=== PATIENT | female | born 1970 ===

== ENCOUNTER 2017-05-13 19:08 | Emergency (ER) | payer BC ==
[2017-05-13 19:15] VITALS: BP 121/75; PULSE 71; RESP 16; TEMP 97.7; O2SAT 98
[2017-05-13] MEDS ORDERED: Lactated Ringer's 1,000 ML IV STA (19:19)
[2017-05-13 19:59] LABS: BASO # 0.1 K/uL (0.0-0.2); BASO % 0.8 % (0.0-2.0); EOS % 0.5 % (0.0-4.0); HEMOGLOBIN 11.2 g/dL (12.0-16.0); LYMPH # 2.2 K/uL (1.0-4.3); LYMPH % 28.7 % (20.0-40.0); MEAN CELL VOLUME 80.1 fl (81.0-99.0); MEAN CORPUSCULAR HEMOGLOBIN 26.3 pg (27.0-31.0); MEAN CORPUSCULAR HGB CONC 32.9 g/dL (33.0-37.0); MEAN PLATELET VOLUME 8.2 fl (7.2-11.7); MONO # 0.4 K/uL (0.0-0.8); MONO % 5.2 % (0.0-10.0); NEUT % 64.8 % (50.0-75.0); NRBC % 0.1 % (0.0-0.0); RBC 4.24 Mil/uL (3.80-5.20); RED CELL DISTRIBUTION WIDTH 16.8 % (11.5-14.5); WHITE BLOOD COUNT 7.7 K/uL (4.8-10.8)
[2017-05-13 20:09] LABS: ALB/GLOB RATIO 1.4 (1.0-2.1); ALBUMIN 4.1 g/dL (3.5-5.0); ALT/SGPT 33 U/L (9-52); AST/SGOT 30 U/L (14-36); BLOOD UREA NITROGEN 7 mg/dl (7-17); CALCIUM 9.5 mg/dL (8.4-10.2); GFR AFRICAN-AMERICAN > 60; GFR NON-AFRICAN AMERICAN > 60
--- NOTE | 2017-05-13 20:17 | ED PDOC ---
HPI: Female Pain Time Seen by Provider: 05/13/17 19:19 Chief Complaint (Nursing): Abdominal Pain Chief Complaint (Provider): Pelvic Pain (Resolved) History Per: Patient History/Exam Limitations: no limitations Onset/Duration Of Symptoms: Days (x1) Current Symptoms Are (Timing): Gone Now Associated Symptoms: denies: Urinary Symptoms Additional Complaint(s): 46 year old female presents to ED with complaints of left-sided pelvic pain that has since resolved and is at 5 weeks . Patient presents to the ED requesting evaluation as she had an ectopic that led to an right-sided oopherectomy in the past. (-) vaginal bleeding/discharge, dysuria, hematuria, or frequency. Patient denies having a [employer], but confirms having 2 outpatient US that both demonstrated an IUP with no heart (most recent 3 days ago). Patient also notes BETA HCG level increased from 4468 to 64869 as of 8 days ago. Notes having an appointment with [employer] Dr. Wooten Tuesday. PCP: Deyanira Abnormal Vaginal Bleeding: No : 3 Para: 1 Past Medical History Reviewed: Historical Data, Nursing Documentation, Vital Signs Vital Signs: Last Vital Signs Temp 97.7 F 05/13/17 19:11 Pulse 71 05/13/17 19:11 Resp 16 05/13/17 19:11 BP 121/75 05/13/17 19:11 Pulse Ox 98 05/13/17 19:11 - Medical History PMH: Anemia - Surgical History Surgical History: Appendectomy Denies: No Surg Hx Other surgeries: ectopic with oopherectomy - Family History Family History: States: No Known Family Hx - Living Arrangements Living Arrangements: With Family - Social History Current smoker - smoking cessation education provided: No Ex-Smoker (has not smoked in the last 12 months): No Alcohol: None Drugs: Denies - Allergies Allergies/Adverse Reactions: Allergies Allergy/AdvReac Type Severity Reaction Status Date / Time No Known Allergies Allergy Verified 05/13/17 19:11 Review of Systems ROS Statement: Except As Marked, All Systems Reviewed And Found Negative Genitourinary Female: Positive for: Pelvic Pain (resolved). Negative for: Dysuria, Frequency, Hematuria, Vaginal Discharge, Vaginal Bleeding Physical Exam - Reviewed Nursing Documentation Reviewed: Yes Vital Signs Reviewed: Yes - Physical Exam Appears: Positive for: Well, No Acute Distress Head Exam: Positive for: ATRAUMATIC, NORMOCEPHALIC Skin: Positive for: Warm, Dry Eye Exam: Positive for: EOMI, PERRL ENT: Negative for: Pharyngeal Erythema, Tonsillar Exudate Neck: Positive for: Painless ROM, Supple Cardiovascular/Chest: Positive for: Regular Rate, Rhythm. Negative for: Murmur Respiratory: Positive for: Normal Breath Sounds. Negative for: Respiratory Distress Gastrointestinal/Abdominal: Positive for: Soft. Negative for: Tenderness, Mass , Distended, Guarding Back: Positive for: Normal Inspection. Negative for: Decreased ROM Extremity: Positive for: Normal ROM. Negative for: Deformity Lymphatic: Negative for: Adenopathy Neurologic/Psych: Positive for: Alert. Negative for: Motor/Sensory Deficits - Laboratory Results Result Diagrams: 05/13/17 19:55 05/13/17 19:55 - ECG O2 Sat by Pulse Oximetry: 98 (RA) Pulse Ox Interpretation: Normal Medical Decision Making Medical Decision Makin Initial impression: pelvic pain and possible demise DDx including but not limited to: UTI, round ligament pain, threatened miscarriage, dehydration Initial plan: * BETA HCG QUANT * Labs * UPreg * UDip * Lactated Ringers IV * US OB TRANSVAGINAL Ultrasound again demonstrates IUP w no heart. Betahcg decreased to ~04373 Advised followup with Director Of Dietary as soon as possible. Discussed concerns for demise and that pt will lose and need close follow up. All questions/ concerns addressed. Scribe Attestation: Documented by Alyssa Julio acting as a scribe for Marya Morrow MD. Scribe Attestation: All medical record entries made by the Scribe were at my direction and personally dictated by me. I have reviewed the chart and agree that the record accurately reflects my personal performance of the history, physical exam, medical decision making, and the department course for this patient. I have also personally directed, reviewed, and agree with the discharge instructions and disposition. Disposition - Clinical Impression Clinical Impression: demise, Abdominal pain during Counseled Patient/Family Regarding: Studies Performed, Diagnosis, Need For Followup - Disposition Referrals: Rajan Garrett MD [Staff Provider] - 05/16/17 Disposition: Routine/Home Disposition Time: 00:00 Condition: STABLE Instructions: Pitfalls After Age 35, Threatened Miscarriage Forms: [employer] ([place]) Print Language: PU[place] RICAN
[2017-05-13 20:42] LABS: SQUAMOUS EPITHIAL 4 /hpf (0-5); URINE BACTERIA RARE (<OCC); URINE BILIRUBIN NEGATIVE (NEGATIVE); URINE BLOOD SMALL (NEGATIVE); URINE CLARITY CLOUDY (Clear); URINE COLOR YELLOW (YELLOW); URINE GLUCOSE (UA) NEG (Normal); URINE LEUKOCYTE ESTERASE LARGE Leu/uL (Negative); URINE PROTEIN NEGATIVE (NEGATIVE); URINE UROBILINOGEN 0.2-1.0 mg/dL (0.2-1.0)
--- NOTE | 2017-05-13 22:57 | US ---
EXAM: US , Transvaginal EXAM DATE/TIME: 05/13/2017 7:48 PM CLINICAL HISTORY: 46 years old, female; Signs and symptoms; Lmp or gestational age (in weeks): Unknown; Other: Known demise from outside facility; ; Additional info: Pelvic pain demise TECHNIQUE: Real-time transvaginal obstetrical ultrasound of the maternal pelvis and a first trimester with image documentation. Transvaginal imaging was used for better evaluation of the fetus and adnexa. COMPARISON: No relevant prior studies available. FINDINGS: The uterus measures 8 x 5 cm in sagittal dimensions. The cervix measures 4.2 cm. There is an intrauterine gestational sac containing yolk sac and pole. Gestational sac Measurements correspond to a gestational age of 6 weeks 6 days. Dubberly rump length Measurements correspond to a gestational age of 6 weeks 0 days. There is no heart rate obtained. The maternal right ovary is normal. There are 2 simple appearing cysts within the left maternal ovary, one measuring 1.5 cm in diameter and the other measuring 1.3 cm in diameter. Color flow and doppler vascular waveforms were demonstrated to both ovaries. IMPRESSION: Intrauterine gestational sac containing yolk sac and pole however no heart rate at this time. Gestational sac measurements correspond to gestational age of 6 weeks 6 days and crown-rump length measurements correspond to gestational age of 6 weeks 0 days. Short-term followup beta-hCG levels and followup ultrasound are recommended.
== END 2017-05-14 00:35 | disposition home or self-care (01) ==
LOC: H.ER 19:08
DX: O36.4XX0 Maternal care for intrauterine death, not applicable or unspecified (principal); Z3A.01 Less than 8 weeks gestation of pregnancy
CPT/HCPCS: 76817; 80053; 81003; 81025; 84702; 85025; 87086; 99282; J7120